=== PATIENT | female | born 1950 | race Caucasian/White ===

== ENCOUNTER → 2018-10-09 | Outpatient (CLI) | payer MEDICARE ==
[~2018-10-09] MED LIST: GLIP10 PO; LEVSOD137 PO; METF500C PO; METH10 PO; OXYC10TA19; Prednisone20 MG PO
[2018-10-09 15:28] LABS: Anion Gap 0 mmol/L (6-16); Blood Urea Nitrogen 20 mg/dL (8-24); Bun/Creatinine Ratio 28.1 (12.0-20.0); CO2, Blood 33 mmol/L (21-32); Calcium, Blood 8.8 mg/dL (8.5-10.1); Chloride, Blood 102 mmol/L (98-108); Creatinine, Blood 0.71 mg/dL (0.40-1.00); Glomerular Filtration Rate >60 (60-); Glucose, Blood 116 mg/dL (70-99); Potassium, Blood 4.4 mmol/L (3.5-5.5); Sodium, Blood 135 mmol/L (136-145)
[2018-10-09 15:51] LABS: Source, Urine Clean Catch
[2018-10-09 17:18] LABS: Bacteria Mod /hpf; Hyaline Casts 0-2 /lpf (0-2); Red Blood Cells, Urine 0-2 /hpf (0-2); Squamous Epithelial Cells Few /hpf (Few); White Blood Cells, Urine 0-2 /hpf (0-5)
[2018-10-10 09:37] LABS: Candida species (DNA Probe) Positive (NEGATIVE); G. vaginalis (DNA Probe) Negative (NEGATIVE); T. vaginalis (DNA Probe) Negative (NEGATIVE)
[2018-10-12 05:08] LABS: CHLAMYDIA TRACHOMATIS, NAA Negative (Negative); NEISSERIA GONORRHOEAE, NAA Negative (Negative)
== END ==
LOC: LAB 14:53 → LAB SHORT 14:53 → EDSTATUS 10-03 18:55 → LAB FUT 10-03 18:55
PROVIDERS: Internal Medicine; Nurse Practitioner
DX: E11.9 Type 2 diabetes mellitus without complications (principal); R10.2 Pelvic and perineal pain
CPT/HCPCS: 36415; 80048; 81015; 83036; 87070; 87147; 87205; 87480; 87491; 87510; 87591; 87660

== ENCOUNTER → 2018-10-26 | Outpatient (CLI) | payer MEDICARE | END | disposition home or self-care (01) | LOC: LAB 16:48 → LAB SHORT 16:48 | DX: L03.90 Cellulitis, unspecified (principal) | CPT/HCPCS: 87070; 87077; 87147; 87186; 87205 ==

== ENCOUNTER 2019-07-08 23:29 | Observation (INO) | payer MEDICARE ==
[~2019-07-08] VITALS: Ht 162.6 cm; Wt 84.5 kg
[~2019-07-08 23:29] MED LIST changes: -OXYC10TA19; +OXYC10TA19 PO
[2019-07-08] MEDS ORDERED: TRULICITY0.75 MG/0. SQ (23:53)
[2019-07-09 00:29] LABS: BASOPHILS ABSOLUTE AUTO 0.01 K/mm3 (0.00-0.23); BASOPHILS PERCENT AUTO 0 % (0-2); EOSINOPHILS ABSOLUTE AUTO 0.14 K/mm3 (0.00-0.68); EOSINOPHILS PERCENT AUTO 2 % (0-6); Hematocrit 53.4 % (33.0-51.0); Hemoglobin 17.1 g/dL (11.5-16.0); IMMATURE GRAN ABSOLUTE AUTO 0.02 K/mm3 (0.00-0.10); IMMATURE GRAN PERCENT AUTO 0 % (0-1); LYMPHOCYTES ABSOLUTE AUTO 0.96 K/mm3 (0.84-5.20); LYMPHOCYTES PERCENT AUTO 12 % (21-46); MONOCYTES ABSOLUTE AUTO 0.53 K/mm3 (0.16-1.47); MONOCYTES PERCENT AUTO 7 % (4-13); Mean Corpuscular HGB 29.9 pg (26.0-34.0); Mean Corpuscular Volume 93 fL (80-100); Mean Platelet Volume 11.9 fL (9.1-12.4); NEUTROPHILS ABSOLUTE AUTO 6.17 K/mm3 (1.96-9.15); NEUTROPHILS PERCENT AUTO 79 % (41-73); Platelet Count 143 K/mm3 (150-400); RDW Coefficient Variation 13.9 % (11.7-14.2); RDW Standard Deviation 48.2 fL (35.1-46.3); Red Blood Cell Count 5.72 M/mm3 (3.80-5.20); White Blood Cell Count 7.83 K/mm3 (4.00-11.30)
[2019-07-09 00:47] LABS: Albumin, Blood 4.3 g/dL (3.4-5.0); Bilirubin, Total 0.6 mg/dL (0.1-1.0); Bun/Creatinine Ratio 23.4 (12.0-20.0); Calcium, Blood 8.9 mg/dL (8.5-10.1); Creatinine, Blood 0.98 mg/dL (0.40-1.00); Globulin, Blood 4.5 g/dL (2.2-4.0); Potassium, Blood 4.4 mmol/L (3.5-5.5); Total Protein, Blood 8.8 g/dL (6.4-8.2)
[2019-07-09 01:18] LABS: Source, Urine Clean Catch
[2019-07-09 01:22] LABS: Bilirubin, Urine Neg (Neg); Blood, Urine Neg (Neg); Glucose Qualitative, Urine Neg (Neg); Ketones, Urine Neg (Neg); Leukocyte Esterase, Urine Neg (Neg); Nitrite, Urine Neg (Neg); Protein, Urine Neg (Neg); Specific Gravity, Urine 1.015 (1.003-1.022); Urobilinogen, Urine NORM (Normal)
[2019-07-09 01:24] LABS: Appearance, Urine Clear (Clear); Color, Urine Yellow (P-Yellow)
[2019-07-09 03:08] LABS: Adenovirus F 40/41 Not Detected (NOT DETECT); Astrovirus Not Detected (NOT DETECT); Campylobacter Sp Not Detected (NOT DETECT); Cryptosporidium Not Detected (NOT DETECT); Cyclospora Cayetanensis Not Detected (NOT DETECT); E. Coli O157 Not Detected (NOT DETECT); Entamoeba Histolytica Not Detected (NOT DETECT); Enteroaggregative E. coli-EAEC Not Detected (NOT DETECT); Enteropathogenic E. coli-EPEC Not Detected (NOT DETECT); Enterotoxigenic E. coli-ETEC Not Detected (NOT DETECT); Giardia Lamblia Not Detected (NOT DETECT); Norovirus GI/GII Not Detected (NOT DETECT); Plesiomonas Shigelloides Not Detected (NOT DETECT); Rotavirus A Not Detected (NOT DETECT); Salmonella Sp Not Detected (NOT DETECT); Sapovirus Not Detected (NOT DETECT); Shiga Toxin-prod E. coli-STEC Not Detected (NOT DETECT); Shigella/Enteroin E. coli-EIEC Not Detected (NOT DETECT); Vibrio Cholerae Not Detected (NOT DETECT); Vibrio Sp Not Detected (NOT DETECT); Yersinia Enterocolitica Not Detected (NOT DETECT)
[2019-07-09] MEDS ORDERED: OMEP20ER PO (06:12)
--- NOTE | 2019-07-09 12:36 | NUR ---
PER JULIO PHILLIPS TO SWITCH PATIENT FROM CLEAR LIQUID DIET TO REGULAR/LACTOSE FREE
--- NOTE | 2019-07-09 14:52 | NUR ---
Upon receiving an admit referral for spiritual care, I visit patient. Patient immediately tells me that she is in pain and very uncomfortable. I push patient's call button. We discuss patient's medical issues and her family briefly and I provide prayer. Patient is verbal while I pray and activily involved in the prayer. Patient's RN, is coming in as I am leaving. I will continue to remain available to patient and family.
[2019-07-09] MEDS ORDERED: ONDA4ODT MM (18:22)
[2019-07-09] MEDS ORDERED: Neurontin300 MG PO (18:24)
[2019-07-09] MEDS ORDERED: TIZA4 PO (18:25)
[2019-07-09] MEDS ORDERED: BUPR150ER PO (18:27)
[2019-07-09] MEDS ORDERED: LINZESS145 MCG PO (18:27)
[2019-07-09] MEDS ORDERED: DICY20 PO (18:32)
--- NOTE | 2019-07-09 19:42 | NUR ---
Shift Summary A/Ox4, able to make needs known. Patient has been complaining of pain in the abdomen, medicated for this x 3 per EMAR with good results. Patient claims she is taking higher doses of pain medications at home as well as other meds. Requested for medication fill history from [facility], med rec has been updated, Dr. Hurtado notified. C/o mild nausea, pt did not request any anti-nausea meds. Toward the end of shift, patient had frequent loose stools, 4 within a 2 hour period, color was greenish brown. Medicated for blood pressure of 190/85 with Apresoline with good results. Discussed the possiblity of ordering Imodium with Dr. Hurtado for diarrhea, no order for this yet. No other acute concerns.
--- NOTE | 2019-07-10 04:56 | NUR ---
SHIFT SUMMARY- PT. A&OX4, INDEPENDENT IN ROOM. ASLEEP T/O MOST OF THE NIGHT. NO APPARENT DISTRESS NOTED. C/O PAIN IN THE RLQ 1X. MEDICATED PER EMAR WITH GOOD RELIEF. PT. RECEIVED DIALYSIS YESTERDAY AM SHIFT. AWAITING SURGERY CONSULT AND PLAN. NO ACUTE CHANGES TO CONDITION. CALL LIGHT WITHIN REACH AND SIDE RAILS UP X2. WILL CONT TO MONITOR.
--- NOTE | 2019-07-10 05:07 | NUR ---
SHIFT SUMMARY- PT. A&OX4, SBA TO BSC. C/O ABD CRAMPING AND FREQUENT DIARRHEA. LOMOTIL PRN AND BENTYL GIVEN PER EMAR, WITH GOOD RESULT. PT. ASLEEP T/O MOST OF THE NIGHT. NO APPARENT DISTRESS NOTED. CALL LIGHT WITHIN REACH AND SIDE RAILS UP X2. WILL CONT TO MONITOR.
[2019-07-10 05:42] LABS: BASOPHILS ABSOLUTE AUTO 0.01 K/mm3 (0.00-0.23); BASOPHILS PERCENT AUTO 0 % (0-2); EOSINOPHILS ABSOLUTE AUTO 0.17 K/mm3 (0.00-0.68); EOSINOPHILS PERCENT AUTO 3 % (0-6); Hematocrit 46.9 % (33.0-51.0); IMMATURE GRAN ABSOLUTE AUTO 0.01 K/mm3 (0.00-0.10); IMMATURE GRAN PERCENT AUTO 0 % (0-1); LYMPHOCYTES ABSOLUTE AUTO 1.16 K/mm3 (0.84-5.20); LYMPHOCYTES PERCENT AUTO 18 % (21-46); MONOCYTES ABSOLUTE AUTO 0.54 K/mm3 (0.16-1.47); MONOCYTES PERCENT AUTO 8 % (4-13); Mean Corpuscular HGB 30.2 pg (26.0-34.0); Mean Corpuscular Volume 94 fL (80-100); Mean Platelet Volume 11.9 fL (9.1-12.4); NEUTROPHILS ABSOLUTE AUTO 4.58 K/mm3 (1.96-9.15); NEUTROPHILS PERCENT AUTO 71 % (41-73); Platelet Count 130 K/mm3 (150-400); RDW Coefficient Variation 14.1 % (11.7-14.2); RDW Standard Deviation 49.1 fL (35.1-46.3); Red Blood Cell Count 4.97 M/mm3 (3.80-5.20); White Blood Cell Count 6.47 K/mm3 (4.00-11.30)
[2019-07-10 06:03] LABS: Alanine Aminotransfer (ALT/SGP 18 U/L (12-78); Albumin, Blood 3.4 g/dL (3.4-5.0); Alk Phos 69 U/L (50-136); Anion Gap 5 mmol/L (6-16); Aspartate Aminotrans (AST/SGOT 12 U/L (12-37); Bilirubin, Total 0.7 mg/dL (0.1-1.0); Blood Urea Nitrogen 13 mg/dL (8-24); CO2, Blood 25 mmol/L (21-32); Calcium, Blood 8.1 mg/dL (8.5-10.1); Chloride, Blood 110 mmol/L (98-108); Creatinine, Blood 0.76 mg/dL (0.40-1.00); Globulin, Blood 3.5 g/dL (2.2-4.0); Glomerular Filtration Rate >60 (60-); Glucose, Blood 106 mg/dL (70-99); Sodium, Blood 140 mmol/L (136-145); Total Protein, Blood 6.9 g/dL (6.4-8.2)
--- NOTE | 2019-07-10 18:05 | NUR ---
SHIFT SUMMARY/ASSUMED CARE ASSUMED CARE OF PT AT 1600 SF RN. PT A&O, SL IN 20G RIGHT HAND, PT ON RA. PT REPORTS DIARRHEA THROUGH OUT THE SHIFT, MEDICATED X1 FOR LOOSE STOOL. ENCOURAGED PT TO INCREASE ORAL FLUIDS. PT REPORTS ABDMONIAL CRAMPING PROVIDED WARM BLANKET AND HEAT PACK. PT TOLORATED FOOD. PT HAS CALL LIGHT WITHIN REACH AND WILL REPORT TO ONCOMING SHIFT.
[2019-07-11 04:37] LABS: BASOPHILS ABSOLUTE AUTO 0.01 K/mm3 (0.00-0.23); BASOPHILS PERCENT AUTO 0 % (0-2); EOSINOPHILS ABSOLUTE AUTO 0.21 K/mm3 (0.00-0.68); EOSINOPHILS PERCENT AUTO 4 % (0-6); Hematocrit 47.2 % (33.0-51.0); Hemoglobin 15.1 g/dL (11.5-16.0); IMMATURE GRAN ABSOLUTE AUTO 0.02 K/mm3 (0.00-0.10); IMMATURE GRAN PERCENT AUTO 0 % (0-1); LYMPHOCYTES ABSOLUTE AUTO 0.84 K/mm3 (0.84-5.20); LYMPHOCYTES PERCENT AUTO 14 % (21-46); MONOCYTES ABSOLUTE AUTO 0.48 K/mm3 (0.16-1.47); MONOCYTES PERCENT AUTO 8 % (4-13); Mean Corpuscular Volume 94 fL (80-100); Mean Platelet Volume 11.8 fL (9.1-12.4); NEUTROPHILS ABSOLUTE AUTO 4.29 K/mm3 (1.96-9.15); NEUTROPHILS PERCENT AUTO 73 % (41-73); Platelet Count 134 K/mm3 (150-400); RDW Coefficient Variation 14.1 % (11.7-14.2); RDW Standard Deviation 48.3 fL (35.1-46.3); Red Blood Cell Count 5.04 M/mm3 (3.80-5.20); White Blood Cell Count 5.85 K/mm3 (4.00-11.30)
[2019-07-11 04:52] LABS: Anion Gap 5 mmol/L (6-16); Blood Urea Nitrogen 15 mg/dL (8-24); Bun/Creatinine Ratio 20.7 (12.0-20.0); CO2, Blood 27 mmol/L (21-32); Calcium, Blood 7.9 mg/dL (8.5-10.1); Chloride, Blood 108 mmol/L (98-108); Creatinine, Blood 0.73 mg/dL (0.40-1.00); Glomerular Filtration Rate >60 (60-); Glucose, Blood 140 mg/dL (70-99); Potassium, Blood 3.7 mmol/L (3.5-5.5); Sodium, Blood 140 mmol/L (136-145)
--- NOTE | 2019-07-11 05:01 | NUR ---
SHIFT SUMMARY- NO ACUTE EVENTS OVERNIGHT. PT. ASLEEP T/O MOST OF THE SHIFT. C/O ABD PAIN AND CRAMPING 1X. MEDICATED PER EMAR WITH GOOD EFFECT. PT. CONTINUES TO HAVE DIARRHEA. GI CONSULTED, PT. TO F/U AFTER D/C. PT. RESTING COMFORTABLY IN BED, NO APPARENT DISTRESS NOTED. CALL LIGHT WITHIN REACH AND SIDE RAILS UP X2. WILL CONT TO MONITOR.
[2019-07-11] MEDS ORDERED: Lomotil Tablet1 EACH PO (13:41)
--- NOTE | 2019-07-11 14:40 | NUR ---
PATIENT DC'D TO HOME WITH FAMILY. RX MEDICATIONS FAXED TO [facility] IN [place]. DC INSTRUCTIONS AND EDUCATION DISCUSSED WITH PATIENT AND COPY PROVIDED. PATIENT DENIES ANY FURTHER QUESTIONS OR CONCERNS.
== END 2019-07-11 14:39 | disposition home or self-care (01) ==
LOC: ER 23:29 → MEDS 23:30
PROVIDERS: Emergency Medicine; Internal Medicine; ADMIT Internal Medicine
DX: A08.4 Viral intestinal infection, unspecified (principal); E86.0 Dehydration; E11.9 Type 2 diabetes mellitus without complications; E03.9 Hypothyroidism, unspecified; G89.29 Other chronic pain; Z74.09 Other reduced mobility; Z88.0 Allergy status to penicillin; Z88.8 Allergy status to other drugs, medicaments and biological substances; Z79.891 Long term (current) use of opiate analgesic; Z79.899 Other long term (current) drug therapy
CPT/HCPCS: 0097U; 36415; 74176; 80048; 80053; 81003; 82947; 83690; 85025; 96361; 96374; 96375; 99284; A9270-GY; J0360; J1650; J2405; J3010; J7030

== ENCOUNTER 2020-04-27 16:12 | Emergency (ER) | payer MEDICARE ==
[~2020-04-27] VITALS: Ht 160 cm; Wt 81.7 kg
[~2020-04-27 16:12] MED LIST changes: +BUPR150ER PO; +DICY20 PO; +LINZESS145 MCG PO; +Lomotil Tablet1 EACH PO; +Neurontin300 MG PO; +OMEP20ER PO; +ONDA4ODT MM; +TIZA4 PO; +TRULICITY0.75 MG/0. SQ
[2020-04-27 19:15] LABS: BASOPHILS ABSOLUTE AUTO 0.03 K/mm3 (0.00-0.23); BASOPHILS PERCENT AUTO 1 % (0-2); EOSINOPHILS ABSOLUTE AUTO 0.23 K/mm3 (0.00-0.68); EOSINOPHILS PERCENT AUTO 4 % (0-6); Hemoglobin 14.7 g/dL (11.5-16.0); IMMATURE GRAN ABSOLUTE AUTO 0.02 K/mm3 (0.00-0.10); IMMATURE GRAN PERCENT AUTO 0 % (0-1); LYMPHOCYTES ABSOLUTE AUTO 1.61 K/mm3 (0.84-5.20); LYMPHOCYTES PERCENT AUTO 27 % (21-46); MONOCYTES ABSOLUTE AUTO 0.37 K/mm3 (0.16-1.47); MONOCYTES PERCENT AUTO 6 % (4-13); Mean Corpuscular HGB 29.9 pg (26.0-34.0); Mean Corpuscular HGB Conc 32.7 g/dL (31.5-36.5); Mean Corpuscular Volume 92 fL (80-100); Mean Platelet Volume 11.7 fL (9.1-12.4); NEUTROPHILS ABSOLUTE AUTO 3.75 K/mm3 (1.96-9.15); NEUTROPHILS PERCENT AUTO 62 % (41-73); Platelet Count 121 K/mm3 (150-400); RDW Coefficient Variation 13.6 % (11.7-14.2); RDW Standard Deviation 45.7 fL (35.1-46.3); Red Blood Cell Count 4.92 M/mm3 (3.80-5.20); White Blood Cell Count 6.01 K/mm3 (4.00-11.30)
[2020-04-27 19:31] LABS: Alanine Aminotransfer (ALT/SGP 24 U/L (12-78); Albumin, Blood 3.6 g/dL (3.4-5.0); Alk Phos 84 U/L (50-136); Anion Gap 5 mmol/L (6-16); Aspartate Aminotrans (AST/SGOT 16 U/L (12-37); Bilirubin, Total 0.3 mg/dL (0.1-1.0); Blood Urea Nitrogen 21 mg/dL (8-24); CO2, Blood 32 mmol/L (21-32); Calcium, Blood 8.7 mg/dL (8.5-10.1); Chloride, Blood 101 mmol/L (98-108); Creatinine, Blood 0.81 mg/dL (0.40-1.00); Globulin, Blood 3.6 g/dL (2.2-4.0); Glomerular Filtration Rate >60 (60-); Glucose, Blood 151 mg/dL (70-99); Potassium, Blood 4.2 mmol/L (3.5-5.5); Sodium, Blood 138 mmol/L (136-145); Total Protein, Blood 7.2 g/dL (6.4-8.2)
[2020-04-27] MEDS ORDERED: ONDA4ODT MM (19:56)
[2020-04-27] MEDS ORDERED: Norco 5-325 Ta1 EACH PO (19:56)
[2020-06-23] MEDS ORDERED: SYMPROIC0.2 MG PO (13:29)
== END 2020-04-27 20:28 | disposition home or self-care (01) ==
LOC: ER 16:12
PROVIDERS: Physician Assistant
DX: K59.00 Constipation, unspecified (principal); K85.90 Acute pancreatitis without necrosis or infection, unspecified; E11.9 Type 2 diabetes mellitus without complications; E03.9 Hypothyroidism, unspecified; Z88.0 Allergy status to penicillin; Z88.8 Allergy status to other drugs, medicaments and biological substances; Z79.899 Other long term (current) drug therapy; Z87.891 Personal history of nicotine dependence
CPT/HCPCS: 36415; 74176; 80053; 83690; 85025; 96374; 99284-25; J2405

== ENCOUNTER 2020-07-01 06:09 | Day surgery (SDC) | payer MEDICARE ==
[~2020-07-01] VITALS: Ht 160 cm; Wt 87.6 kg
[~2020-07-01 06:09] MED LIST changes: +Norco 5-325 Ta1 EACH PO; +SYMPROIC0.2 MG PO
[2020-07-01] MEDS ORDERED: METF500 (07:19)
[2020-07-01] MEDS ORDERED: Robaxin750 MG (07:19)
[2020-07-01] MEDS ORDERED: LINZESS145 MCG (07:20)
== END 2020-07-01 08:48 | disposition home or self-care (01) ==
LOC: ORSCSDS 06:09
PROVIDERS: Ophthalmology
PROC: 08RJ3JZ Replacement of Right Lens with Synthetic Substitute, Percutaneous Approach (ICD-10-PCS; principal; 2020-07-01 08:00)
DX: H25.11 Age-related nuclear cataract, right eye (principal); E11.9 Type 2 diabetes mellitus without complications; Z79.84 Long term (current) use of oral hypoglycemic drugs; I10 Essential (primary) hypertension; E03.9 Hypothyroidism, unspecified; J45.909 Unspecified asthma, uncomplicated; Z79.899 Other long term (current) drug therapy; Z87.891 Personal history of nicotine dependence
CPT/HCPCS: 82947; A9270; J2001; J2250; J3010; J3301; J7040; V2632

== ENCOUNTER → 2021-12-13 | Outpatient (CLI) | payer OTHER ==
[~2021-12-13] MED LIST changes: +LINZESS145 MCG; +METF500; +Robaxin750 MG
== END | disposition home or self-care (01) ==
LOC: LAB SHORT 08:50 → LAB 08:50
DX: D22.39 Melanocytic nevi of other parts of face (principal); L30.9 Dermatitis, unspecified; L57.0 Actinic keratosis; L91.8 Other hypertrophic disorders of the skin; R21 Rash and other nonspecific skin eruption
CPT/HCPCS: 87798

== ENCOUNTER 2023-12-02 15:37 | Inpatient (IN) | payer OTHER ==
[~2023-12-02] VITALS: Ht 160 cm; Wt 84.7 kg
[~2023-12-02 15:37] MED LIST changes: -AMLO5 PO; -ATOR40TA PO; -Aspir 8181 MG PO; -BISA10S PR; -DOCU100 PO; -EUTHYROX150 MC1 PO; -Isosorbide Mono30 MG PO; -MASOPHEN325 M3 PO; -METH5 PO; -METO50ER PO; -OZEMPIC2 MG/0.75 SC; -SENNA LAXATIVE8.6 MG PO; -VITAMIN D325 MC3 PO
[2023-12-02] MEDS ORDERED: METH5 PO (16:02)
[2023-12-02] MEDS ORDERED: OXYC10TA19 PO (16:02)
[2023-12-02] MEDS ORDERED: OZEMPIC2 MG/0.75 SC (16:03)
[2023-12-02] MEDS ORDERED: OMEP20ER PO (16:04)
[2023-12-02] MEDS ORDERED: EUTHYROX150 MC1 PO (16:04)
[2023-12-02] MEDS ORDERED: VITAMIN D325 MC3 PO (16:05)
[2023-12-02] MEDS ORDERED: Aspirin 81 MG Chew PO ONE (16:15)
[2023-12-02] MEDS ORDERED: Nitroglycerin 0.4 MG SUBL SL PRN (16:15)
[2023-12-02] MEDS ORDERED: Clopidogrel Bisulfate 300 MG Cap PO ONE (17:40)
[2023-12-02] MEDS ORDERED: Acetaminophen 325 MG TABLET PO PRN (17:40)
[2023-12-02] MEDS ORDERED: Omeprazole 20 MG CapCR PO PRN (17:45)
[2023-12-02] MEDS ORDERED: FLU VACC TS2024-25(6MOS UP)/PF 45 MCG/0.5 ML SYRINGE IM ONE (17:45)
[2023-12-02] MEDS ORDERED: LORazepam 0.5 MG Tab PO PRN (17:55)
[2023-12-02] MEDS ORDERED: Metoprolol Tartrate 25 MG Tab PO SCH (18:00)
[2023-12-02] MEDS ORDERED: SEMAGLUTIDE 8 MG/3 ML SC SCH (18:05)
[2023-12-02] MEDS ORDERED: Albuterol 2.5 MG/3 ML VIAL INH PRN (18:55)
[2023-12-02] MEDS ORDERED: Mometasone/Formoterol MDI 200/5 mcg 13 GM INH SCH (19:00)
[2023-12-02] MEDS ORDERED: Nitroglycerin 1 INCH/GM PKT TOP SCH (20:00)
[2023-12-02 20:54] VITALS: BP 169/71
[2023-12-02] MEDS ORDERED: Enoxaparin 100 MG/ML 1ML SYR SC SCH (21:00)
[2023-12-02] MEDS ORDERED: OxyCODONE HCL 5 MG TAB PO SCH (21:00)
[2023-12-02] MEDS ORDERED: Insulin Regular 100 Unit/ML 1ML Dose SC SCH (21:00)
--- NOTE | 2023-12-02 22:10 | NUR ---
PATIENT IS A NEW ADMIT FROM THE ED. ALERT AND ORIENTED, ARRIVED VIA W/C AND SBA TO BED. DENIES CHEST PAIN, SOB, N/V AND NO CHEST TIGHTNESS. ON ROOM AIR. TELEMETRY PLACED NSR AND CBG 166. REDNESS TO ABDOMEN SKIN FOLDS. ORIENTED TO ROOM AND CALL LIGHT SYSTEM. RESTING IN BED AFTER ASSESSMENT TALKING ON PHONE TO FAMILY. WCTM.
[2023-12-02] MEDS ORDERED: Miconazole Nitrate 2% 85 GM PWD TOP SCH (23:10)
[2023-12-03 02:29] VITALS: BP 182/79
[2023-12-03] MEDS ORDERED: HydrALAZINE HCl 20 MG / ML 1ML Vial IV PRN (03:05)
[2023-12-03 04:31] VITALS: BP 118/69
--- NOTE | 2023-12-03 04:32 | NUR ---
SHIFT SUMMARY PATIENT HAD NO ACUTE CHANGES. AXO X4 AND SBA TO BR. DENIES CHEST PAIN AND CHEST TIGHTNESS. NO SOB AND N/V. HYPERTENSIVE ON ADMIT AND 2D SET OF VITALS 182/79. HOSPITALIST DR ARMENTA ORDERED IV APRESOLINE 10 MG FOR SBP > 160. 118/69 ON RECHECK. PIV INTACT. TELE MONITOR NSR 68. CBG 166. AFEBRILE. SLEPT AFTER ADMIT. CALL LIGHT IN REACH. BED IN LOWEST POSITION. WILL CONTINUE TO MONITOR UNTIL DAY SHIFT NURSE ASSUMES CARE.
[2023-12-03 05:24] LABS: BASOPHILS ABSOLUTE AUTO 0.05 K/mm3 (0.00-0.23); BASOPHILS PERCENT AUTO 1 % (0-2); EOSINOPHILS ABSOLUTE AUTO 0.32 K/mm3 (0.00-0.68); EOSINOPHILS PERCENT AUTO 5 % (0-6); Hemoglobin 14.4 g/dL (11.5-16.0); IMMATURE GRAN ABSOLUTE AUTO 0.01 K/mm3 (0.00-0.10); IMMATURE GRAN PERCENT AUTO 0 % (0-1); LYMPHOCYTES ABSOLUTE AUTO 1.46 K/mm3 (0.84-5.20); LYMPHOCYTES PERCENT AUTO 24 % (21-46); MONOCYTES ABSOLUTE AUTO 0.47 K/mm3 (0.16-1.47); MONOCYTES PERCENT AUTO 8 % (4-13); Mean Corpuscular HGB 30.7 pg (26.0-34.0); Mean Corpuscular HGB Conc 33.5 g/dL (31.5-36.5); Mean Corpuscular Volume 92 fL (80-100); Mean Platelet Volume 12.3 fL (9.1-12.4); NEUTROPHILS ABSOLUTE AUTO 3.76 K/mm3 (1.96-9.15); NEUTROPHILS PERCENT AUTO 62 % (41-73); Platelet Count 137 K/mm3 (150-400); RDW Coefficient Variation 13.2 % (11.7-14.2); RDW Standard Deviation 43.8 fL (35.1-46.3); Red Blood Cell Count 4.69 M/mm3 (3.80-5.20); White Blood Cell Count 6.07 K/mm3 (4.00-11.30)
[2023-12-03 05:56] LABS: Albumin, Blood 3.3 g/dL (3.4-5.0); Albumin/Globulin Ratio 0.9 (0.8-1.8); Bilirubin, Total 0.5 mg/dL (0.1-1.0); Bun/Creatinine Ratio 25.9 (12.0-20.0); Calcium, Blood 9.1 mg/dL (8.5-10.1); Creatinine, Blood 0.81 mg/dL (0.40-1.00); Globulin, Blood 3.6 g/dL (2.2-4.0); Potassium, Blood 3.9 mmol/L (3.5-5.5); Total Protein, Blood 6.9 g/dL (6.4-8.2)
[2023-12-03] MEDS ORDERED: LINACLOTIDE PO SCH (06:00)
[2023-12-03] MEDS ORDERED: Levothyroxine Sodium 0.15 MG Tab PO SCH (06:00)
[2023-12-03 07:09] VITALS: BP 158/72
[2023-12-03] MEDS ORDERED: Insulin Regular 100 UNIT/ML 10ML Vial SC SCH ×2 (08:55→11:30)
[2023-12-03] MEDS ORDERED: Cholecalciferol 1000 Unit Tablet (=25MCG) PO SCH (09:00)
[2023-12-03] MEDS ORDERED: Aspirin 325 MG Tab PO SCH (09:00)
[2023-12-03 09:33] LABS: BASOPHILS ABSOLUTE AUTO 0.05 K/mm3 (0.00-0.23); BASOPHILS PERCENT AUTO 1 % (0-2); EOSINOPHILS ABSOLUTE AUTO 0.33 K/mm3 (0.00-0.68); EOSINOPHILS PERCENT AUTO 5 % (0-6); Hematocrit 43.3 % (33.0-51.0); Hemoglobin 14.5 g/dL (11.5-16.0); IMMATURE GRAN ABSOLUTE AUTO 0.01 K/mm3 (0.00-0.10); IMMATURE GRAN PERCENT AUTO 0 % (0-1); LYMPHOCYTES ABSOLUTE AUTO 1.36 K/mm3 (0.84-5.20); LYMPHOCYTES PERCENT AUTO 19 % (21-46); MONOCYTES ABSOLUTE AUTO 0.44 K/mm3 (0.16-1.47); MONOCYTES PERCENT AUTO 6 % (4-13); Mean Corpuscular HGB 31.1 pg (26.0-34.0); Mean Corpuscular HGB Conc 33.5 g/dL (31.5-36.5); Mean Corpuscular Volume 93 fL (80-100); Mean Platelet Volume 11.5 fL (9.1-12.4); NEUTROPHILS ABSOLUTE AUTO 4.86 K/mm3 (1.96-9.15); NEUTROPHILS PERCENT AUTO 69 % (41-73); Platelet Count 140 K/mm3 (150-400); RDW Coefficient Variation 13.2 % (11.7-14.2); RDW Standard Deviation 45.1 fL (35.1-46.3); Red Blood Cell Count 4.66 M/mm3 (3.80-5.20); White Blood Cell Count 7.05 K/mm3 (4.00-11.30)
[2023-12-03 10:44] LABS: Anion Gap 11 mmol/L (3-11); Blood Urea Nitrogen 19 mg/dL (8-24); Bun/Creatinine Ratio 22.9 (12.0-20.0); CHOL/HDL RATIO 3.8; CO2, Blood 26 mmol/L (21-32); Calcium, Blood 8.8 mg/dL (8.5-10.1); Chloride, Blood 103 mmol/L (98-108); Cholesterol 212 mg/dL (50-200); Creatinine, Blood 0.83 mg/dL (0.40-1.00); Glomerular Filtration Rate 73 (60-); Glucose, Blood 207 mg/dL (70-99); HDL Cholesterol 56 mg/dL (>39); LDL/HDL RATIO 1.6; Low Density Lipoprotein Chol 89 mg/dL (0-110); Potassium, Blood 3.9 mmol/L (3.5-5.5); Sodium, Blood 136 mmol/L (136-145); Triglycerides 334 mg/dL (30-160); Triiodothyronine, Free 1.79 pg/mL (2.18-3.98); Very Low Density Lipoprot Chol 66 mg/dL (6-32)
[2023-12-03] MEDS ORDERED: Methadone HCL 5 MG TAB PO SCH (14:00)
[2023-12-03] MEDS ORDERED: Magnesium Hydroxide Conc 10 ML UDC PO PRN (14:55)
[2023-12-03] MEDS ORDERED: Bisacodyl 10 MG Supp PR PRN (15:00)
[2023-12-03 15:09] VITALS: BP 154/62
--- NOTE | 2023-12-03 17:55 | NUR ---
SHIFT SUMMARY PT A&OX4, VSS, AMB W/ SBA, TOLERATING PO, VOIDING, AND PAIN MANAGED PER EMAR. PT HAD ECHO, RLE ULTRASOUND, AND CT-PE STUDY THIS SHIFT, ALL FINDINGS WNL. PT C/O CONSTIPATION, NEW ORDERS RECEIVED FOR SCHEDULED MEDS. PT TO BE NPO AFTER MIDNIGHT FOR STRESS TEST TOMORROW 12/04/23. CALL LIGHT WITHIN REACH AND PT ABLE TO MAKE NEEDS KNOWN.
[2023-12-03 20:08] VITALS: BP 146/63
[2023-12-03] MEDS ORDERED: Metoprolol Succinate 25 MG TABCR PO SCH (21:00)
[2023-12-03] MEDS ORDERED: Docusate Sodium 100 MG Cap PO SCH (21:00)
[2023-12-03] MEDS ORDERED: AmLODIPine Besylate 5 MG Tab PO SCH (21:00)
[2023-12-03] MEDS ORDERED: Sennosides 8.6 MG Tab PO SCH (21:00)
[2023-12-03] MEDS ORDERED: Atorvastatin 40 MG Tab PO SCH (21:00)
[2023-12-04 02:39] VITALS: BP 148/77
[2023-12-04 05:44] LABS: BASOPHILS ABSOLUTE AUTO 0.03 K/mm3 (0.00-0.23); BASOPHILS PERCENT AUTO 1 % (0-2); EOSINOPHILS PERCENT AUTO 6 % (0-6); Hemoglobin 14.1 g/dL (11.5-16.0); IMMATURE GRAN ABSOLUTE AUTO 0.01 K/mm3 (0.00-0.10); IMMATURE GRAN PERCENT AUTO 0 % (0-1); LYMPHOCYTES ABSOLUTE AUTO 1.33 K/mm3 (0.84-5.20); LYMPHOCYTES PERCENT AUTO 25 % (21-46); MONOCYTES ABSOLUTE AUTO 0.38 K/mm3 (0.16-1.47); MONOCYTES PERCENT AUTO 7 % (4-13); Mean Corpuscular HGB 30.8 pg (26.0-34.0); Mean Corpuscular HGB Conc 32.8 g/dL (31.5-36.5); Mean Corpuscular Volume 94 fL (80-100); Mean Platelet Volume 12.6 fL (9.1-12.4); NEUTROPHILS ABSOLUTE AUTO 3.27 K/mm3 (1.96-9.15); NEUTROPHILS PERCENT AUTO 62 % (41-73); Platelet Count 111 K/mm3 (150-400); RDW Coefficient Variation 13.2 % (11.7-14.2); RDW Standard Deviation 45.8 fL (35.1-46.3); Red Blood Cell Count 4.58 M/mm3 (3.80-5.20); White Blood Cell Count 5.32 K/mm3 (4.00-11.30)
[2023-12-04 05:50] LABS: Bun/Creatinine Ratio 22.8 (12.0-20.0); Calcium, Blood 8.9 mg/dL (8.5-10.1); Creatinine, Blood 0.92 mg/dL (0.40-1.00); Potassium, Blood 4.3 mmol/L (3.5-5.5)
[2023-12-04] MEDS ORDERED: Levothyroxine Sodium 0.175 MG TAB PO SCH (06:00)
--- NOTE | 2023-12-04 07:07 | NUR ---
SHIFT SUMMARY PT IS A&OX4 FORGETFUL AT TIMES. VSS ON RA. PER TELEMETRY PT IS IN SR @ 69 BPM.PT IS GETTING SCHEDULED 10 MG PO OXYCODONE TID. PT HAS NOT C/O PAIN. TOLERATING A CONS CARB DIET, HAVING HS SNACKS, NPO AFTER MN FOR STRESS TEST TODAY. NO BM THIS SHIFT, STARTED ON BOWEL CARE. PT IS UP AD BOOM INDEPENDENTLY IN ROOM/BR. BED IN LOWEST POSITION, CALL LIGHT WITHIN REACH.
[2023-12-04 07:17] VITALS: BP 149/61
[2023-12-04] MEDS ORDERED: Aspirin 81 MG TabEC PO SCH (09:00)
[2023-12-04] MEDS ORDERED: Metoprolol Succinate 50 MG TABCR PO SCH (09:00)
[2023-12-04] MEDS ORDERED: AmLODIPine Besylate 5 MG Tab PO SCH (09:00)
--- NOTE | 2023-12-04 09:28 | NUR ---
ASSUMED CARE AND COMFORT OF THIS PATIENT AT 0715 TODAY. PATIENT RESTING COMFORTABLY BREATHING EVEN AND UNLABORED. ROUSES TO BEDSIDE SHIFT REPORT BUT RETURNS TO SLEEP ALMOST IMMEDIATELY. 1ST PART OF STRESS TEST AT 0900 TODAY. MEAL TRAY PROVIDED AFTER INJECTION. NO CAFFEINE ON TRAY. PATIENT AGITATED THIS AM. ATTEMPTS TO CONSOLE ARE MET WITH RESISTANCE. PATIENT DOES NOT WANT TO TALK ABOUT WHATS BOTHERING HER SO SHE IS LEFT ALONE WITH PRIVACY. CALL LIGHT IN REACH. THIS RN SITTING OUTSIDE OF ROOM INCASE SHE NEEDS ANYTHING.
[2023-12-04] MEDS ORDERED: Regadenoson 0.4 MG/5 ML SYRINGE ONE (13:34)
[2023-12-04] MEDS ORDERED: Aminophylline 250MG / 10ML 10 ML Vial ONE (13:34)
[2023-12-04 14:52] VITALS: BP 145/63
--- NOTE | 2023-12-04 15:22 | NUR ---
SHIFT SUMMARY; PATIENT HAD STRESS TEST TODAY. TOLERATED WELL. WAITING RESULTS AT THIS TIME. PER IF NO ISSUES MAY DC THIS EVENING. PATIENT ASKS FOR ATIVAN FOR ANXIETY THIS AFTERNOON. SHE ALSO RECEIVES OXYCODONE PO SCHEDULED FOR CHRONIC BACK PAIN. VITAL SIGNS ARE STABLE AND WNL. SHE DENIES ANY CP OR DISCOMFORT AT THIS TIME. WILL REMAIN AVAILABLE FOR THIS PATIENT FOR ANY WANTS OR NEEDS THAT COME UP PRIOR TO REPORT AND HAND OFF TO NOC SHIFT RN.
[2023-12-04 19:36] VITALS: BP 119/57
[2023-12-05 01:27] VITALS: BP 116/58
[2023-12-05] MEDS ORDERED: FentaNYL Citrate 50 MCG/ML 2 ML Injection IV PRN (02:00)
--- NOTE | 2023-12-05 02:53 | NUR ---
NOTIFIED BY [employer] PT HAD ST ELEVATIONS STARTING @ 184 AND ONGOING WHEN NOTIFIED @ 194. PT CHECKED AND ASYMPTOMATIC. HOSPITALIST NOTIFIED AND EKG DONE WITH NO NEW FINDINGS. WILL CONTINUE TO MONITOR VIA TELEMETRY.
--- NOTE | 2023-12-05 02:55 | NUR ---
PT HAD C/O OF CP @ 0135. PT DESCRIBED PAIN RADIATING TO BACK, BUT NOT DOWN EITHER ARM, NO JAW PAIN, OR N/V. ONE DOSE SL NITRO GIVEN WHICH PT REPORTED GREATLY DECRESED CP/DISCOMFORT. EKG DONE AND NO NEW FINDINGS. HOSPITLAIST NOTIFIED AND ORDERS FOR TROPONIN DRAW AND FENTANYL FOR PAIN ORDERED.
[2023-12-05 03:26] VITALS: BP 165/71
[2023-12-05 05:00] VITALS: BP 136/63
--- NOTE | 2023-12-05 05:41 | NUR ---
SHIFT SUMMARY NOC PT A/O X 4. HIGHLY ANXIOUS BUT PLEASANT AND COOPERATIVE WITH CARE. HS CBG 183 CNI. BP SLIGHTLY ELEVATED WHEN PT ANXIOUS. PT HAD ST ELEVATIONS ON TELE THAT LASTED OVER AN HOUR, PT ASYMPTOMATIC WHEN CHECKED, EKG WITH NO NEW CHANGES, OTHERWISE PT SINUS RHYTHM IN 80'S. LATER IN SHIFT PT HAD CP OF CHEST PAIN RADIATING TO BACK AND DOSE SL NITRO GIVEN WHICH DECREASED PRESSURE/DISCOMFORT, ANOTHER EKG SHOWED NO NEW CHANGES. PT GIVEN DOSE OF FENTANYL WHICH RELIEVED ALL CP. PT STATES THAT THEY HOPE TO DISCHARGE HOME TODAY. PT CURRENTLY RESTING WITH BED IN LOWEST POSITION, AND CALL LIGHT WITHIN REACH.
[2023-12-05 07:10] VITALS: BP 133/49
[2023-12-05] MEDS ORDERED: Isosorbide Mononitrate 30 MG TABCR PO SCH (09:00)
[2023-12-05] MEDS ORDERED: Enoxaparin 40 MG/0.4 ML SYR SC SCH (09:00)
[2023-12-05] MEDS ORDERED: MASOPHEN325 M3 PO (10:49)
[2023-12-05] MEDS ORDERED: AMLO5 PO (11:00)
[2023-12-05] MEDS ORDERED: ATOR40TA PO (11:01)
[2023-12-05] MEDS ORDERED: Aspir 8181 MG PO (11:01)
[2023-12-05] MEDS ORDERED: BISA10S PR (11:02)
[2023-12-05] MEDS ORDERED: DOCU100 PO (11:02)
[2023-12-05] MEDS ORDERED: Isosorbide Mono30 MG PO (11:03)
[2023-12-05] MEDS ORDERED: METO50ER PO (11:04)
[2023-12-05] MEDS ORDERED: SENNA LAXATIVE8.6 MG PO (11:05)
--- NOTE | 2023-12-05 14:29 | NUR ---
PT AWAKE, SITTING UP TO EOB DURING SHIFT REPORT. PT WANTING TO GO HOME. DR BLANCO IN TO SEE PT AND DISCUSS PLAN OF CARE. STRESS TEST RESULTS NEG. PT CLEARED TO GO HOME. D/C ORDERS PLACED. MEDS FAXED TO [facility] IN [place], PER PT REQUEST. D/C ORDERS REVIEWED WITH PT; VERBALIZED UNDERSTANDING. PT CALLED A FRIEND FOR A RIDE HOME. PT ASSISTED OUT VIA W/C WITH ALL BELONGINGS.
== END 2023-12-05 13:28 | disposition home or self-care (01) | DRG 313 ==
LOC: ER 15:37 → MEDS 17:37 → ENPENDDIS 12-05 11:42 → MEDS 12-05 13:28
PROVIDERS: Family Medicine; ADMIT Family Medicine
DX: R07.89 Other chest pain (principal); E66.2 Morbid (severe) obesity with alveolar hypoventilation; F11.20 Opioid dependence, uncomplicated; J45.40 Moderate persistent asthma, uncomplicated; M47.812 Spondylosis without myelopathy or radiculopathy, cervical region; M48.02 Spinal stenosis, cervical region; F43.0 Acute stress reaction; F43.23 Adjustment disorder with mixed anxiety and depressed mood; M51.369 Other intervertebral disc degeneration, lumbar region without mention of lumbar back pain or lower extremity pain; I44.7 Left bundle-branch block, unspecified; I10 Essential (primary) hypertension; E03.9 Hypothyroidism, unspecified; E11.40 Type 2 diabetes mellitus with diabetic neuropathy, unspecified; M79.7 Fibromyalgia; G89.29 Other chronic pain; Z88.8 Allergy status to other drugs, medicaments and biological substances; Z88.0 Allergy status to penicillin; Z79.82 Long term (current) use of aspirin; Z79.4 Long term (current) use of insulin; Z79.890 Hormone replacement therapy; Z79.899 Other long term (current) drug therapy; Z87.891 Personal history of nicotine dependence; Z90.49 Acquired absence of other specified parts of digestive tract; Z90.89 Acquired absence of other organs; Z90.710 Acquired absence of both cervix and uterus; Z68.33 Body mass index [BMI] 33.0-33.9, adult
CPT/HCPCS: 36415; 71045; 71260; 78452; 80048; 80053; 80061; 82947; 83036; 84439; 84481; 84484; 85025; 93005; 93010; 93017; 93306; 93971; 94640; 94664; 94760; 94762; 99285-25; A9270; A9500; J0280; J0360; J1650; J1815; J2785; J3010; Q9967

== ENCOUNTER → 2023-12-02 | Outpatient (CLI) | payer OTHER ==
[~2023-12-02] MED LIST changes: +AMLO5 PO; +ATOR40TA PO; +Aspir 8181 MG PO; +BISA10S PR; +DOCU100 PO; +EUTHYROX150 MC1 PO; +Isosorbide Mono30 MG PO; -LINZESS145 MCG; +MASOPHEN325 M3 PO; +METH5 PO; +METO50ER PO; +OZEMPIC2 MG/0.75 SC; +SENNA LAXATIVE8.6 MG PO; +VITAMIN D325 MC3 PO
[2023-12-02 14:56] LABS: BASOPHILS ABSOLUTE AUTO 0.05 K/mm3 (0.00-0.23); BASOPHILS PERCENT AUTO 1 % (0-2); EOSINOPHILS ABSOLUTE AUTO 0.23 K/mm3 (0.00-0.68); EOSINOPHILS PERCENT AUTO 3 % (0-6); Hematocrit 43.6 % (33.0-51.0); Hemoglobin 14.8 g/dL (11.5-16.0); IMMATURE GRAN ABSOLUTE AUTO 0.02 K/mm3 (0.00-0.10); IMMATURE GRAN PERCENT AUTO 0 % (0-1); LYMPHOCYTES ABSOLUTE AUTO 1.36 K/mm3 (0.84-5.20); LYMPHOCYTES PERCENT AUTO 18 % (21-46); MONOCYTES ABSOLUTE AUTO 0.53 K/mm3 (0.16-1.47); MONOCYTES PERCENT AUTO 7 % (4-13); Mean Corpuscular HGB 31.2 pg (26.0-34.0); Mean Corpuscular HGB Conc 33.9 g/dL (31.5-36.5); Mean Corpuscular Volume 92 fL (80-100); Mean Platelet Volume 11.4 fL (9.1-12.4); NEUTROPHILS ABSOLUTE AUTO 5.55 K/mm3 (1.96-9.15); NEUTROPHILS PERCENT AUTO 72 % (41-73); Platelet Count 143 K/mm3 (150-400); RDW Coefficient Variation 13.3 % (11.7-14.2); Red Blood Cell Count 4.74 M/mm3 (3.80-5.20); White Blood Cell Count 7.74 K/mm3 (4.00-11.30)
[2023-12-02 15:17] LABS: Albumin, Blood 3.7 g/dL (3.4-5.0); Bilirubin, Total 0.5 mg/dL (0.1-1.0); Bun/Creatinine Ratio 20.4 (12.0-20.0); Creatinine, Blood 1.08 mg/dL (0.40-1.00); Globulin, Blood 3.7 g/dL (2.2-4.0); Potassium, Blood 4.1 mmol/L (3.5-5.5); Thyroid Stimulating Hormone 12.744 uIU/mL (0.360-4.800); Total Protein, Blood 7.4 g/dL (6.4-8.2)
== END | disposition home or self-care (01) ==
LOC: LAB SHORT 14:52 → LAB 14:52
PROVIDERS: Physician Assistant
DX: R07.9 Chest pain, unspecified (principal); R53.83 Other fatigue
CPT/HCPCS: 80053; 84443; 84484; 85025

== ENCOUNTER → 2024-06-23 | Outpatient (CLI) | payer OTHER ==
[~2024-06-23] MED LIST changes: +AMLO5 PO; +ATOR40TA PO; +Aspir 8181 MG PO; +BISA10S PR; +DOCU100 PO; +EUTHYROX150 MC1 PO; +Isosorbide Mono30 MG PO; +MASOPHEN325 M3 PO; +METH5 PO; +METO50ER PO; +OZEMPIC2 MG/0.75 SC; +SEMGLEE (Y100 UNIT/2 SQ; +SENNA LAXATIVE8.6 MG PO; +VITAMIN D325 MC3 PO
== END ==
LOC: LAB 13:16 → LAB SHORT 13:16
DX: R35.0 Frequency of micturition (principal)
CPT/HCPCS: 87077; 87086; 87186

== ENCOUNTER 2024-10-27 13:49 | Day surgery (SDC) | payer OTHER ==
[~2024-10-27] VITALS: Ht 160 cm; Wt 82.1 kg
[~2024-10-27 13:49] MED LIST changes: +ALBU90OI INH; +AMARYL1 M1 PO; +ANORO ELLIPTA1 EACH INH; +BUME1 PO; +BUPROPION XL150 M1 PO; +BUTALBITAL ACE PO; +Bentyl10 MG PO; +CYCL10 PO; +Imitrex100 MG PO; +LEVSOD100 PO; +LIDO700A20 TOP; +MELO7.5 PO; +MINO2.5 PO; +MOUNJARO10 MG/0.5 SC; +MOUNJARO12.5 MG/0. SC; +NURTEC ODT75 MG PO; +NYAMYC1513 TOP; +Ondansetron Odt8 MG MM; +POTA10T PO; +POTCHL20ER PO; +[UNRECOGNIZED DRUG - OTHER]; +[UNRECOGNIZED DRUG - SUPPLY]
[2024-10-27 14:20] VITALS: BP 159/84
--- NOTE | 2024-10-27 14:33 | NUR ---
History, Chart, Medications and Allergies reviewed before start of procedure. Patient confirms NPO status and agrees with scheduled surgery. Patient States Post-Procedure ride home has been arranged WITH [facility]. Pre-Op teaching done. Pt verbalizes understanding.
[2024-10-27] MEDS ORDERED: Benzocaine Oral Spray 0.5ML UD ONE (14:35)
--- NOTE | 2024-10-27 14:56 | NUR ---
10/27/24 1456 Nikhil Agudelo History, Chart, Medications and Allergies reviewed before start of procedure. MONITOR INTACT WITH CONTINUOUS PULSE OXIMETRY, CONTINUOUS END TITAL CO2, 3-LEAD EKG AND INTERMITTENT BLOOD PRESSURE. 3-LEAD EKG REVIEWED WITH PHYSICIAN PRIOR TO START OF PROCEDURE. O2 VIA POM INTACT THROUGHOUT SEDATION/PROCEDURE. Bite Block Placed. HURRICAINE SPRAY X2 TO BACK OF THROAT BY DR LEE.
[2024-10-27 15:33] VITALS: BP 160/90
--- NOTE | 2024-10-27 15:57 | NUR ---
Patient up to Ambulate independently. Gait steady. VSS and consistent with pt baseline. Pt titi PO fluids. Discharge instructions reviewed with patient. Patient verbalizes understanding. Copy given to patient to take home. Discharged via wheelchair to private car for ride home. Pt belongings returned to pt.
== END 2024-10-27 15:57 | disposition home or self-care (01) ==
LOC: ORSCMMR 13:49
PROVIDERS: Family Medicine
PROC: 0DB68ZX Excision of Stomach, Via Natural or Artificial Opening Endoscopic, Diagnostic (ICD-10-PCS; principal; 2024-10-27 15:00)
PROC: 0DB48ZX Excision of Esophagogastric Junction, Via Natural or Artificial Opening Endoscopic, Diagnostic (ICD-10-PCS; principal; 2024-10-27 15:00)
DX: K21.9 Gastro-esophageal reflux disease without esophagitis (principal); Z12.11 Encounter for screening for malignant neoplasm of colon; Z86.0100 Personal history of colon polyps, unspecified; K31.9 Disease of stomach and duodenum, unspecified; K29.70 Gastritis, unspecified, without bleeding; K29.80 Duodenitis without bleeding; K57.30 Diverticulosis of large intestine without perforation or abscess without bleeding; K64.1 Second degree hemorrhoids; K64.4 Residual hemorrhoidal skin tags; E11.9 Type 2 diabetes mellitus without complications; G47.33 Obstructive sleep apnea (adult) (pediatric); Z79.899 Other long term (current) drug therapy
CPT/HCPCS: 82947; 88305; 88341; 88342; A9270; J2704; J7120

== ENCOUNTER → 2025-02-17 | Outpatient (CLI) | payer OTHER ==
[2025-02-19 13:37] LABS: FAT, FECAL - NEUTRAL Normal (Normal); FAT, FECAL - SPLIT Normal (Normal)
[2025-02-22 06:21] LABS: CALPROTECTIN,FECAL 164 ug/g (<=49); PANCREATIC ELASTASE,FECAL 167 ug/g (>=100)
== END | disposition home or self-care (01) ==
LOC: LAB 09:00 → LAB SHORT 09:00
PROVIDERS: Family Medicine
DX: R19.7 Diarrhea, unspecified (principal)
CPT/HCPCS: 82653; 82705; 83993; 87338